=== PATIENT | female | born 1970 | race Caucasian/White ===

== ENCOUNTER 2023-01-22 14:40 | Outpatient (CLI) | payer MEDICAID | END 2023-01-22 14:41 | disposition home or self-care (01) | LOC: CSHMAMMO 14:40 | PROVIDERS: ATTEND Family Medicine | DX: Z12.31 Encounter for screening mammogram for malignant neoplasm of breast (principal) | CPT/HCPCS: 77063; 77067 ==

== ENCOUNTER 2023-04-02 15:34 | Outpatient (CLI) | payer OTHER | END 2023-04-02 15:35 | disposition home or self-care (01) | LOC: CSHMRI 15:34 | PROVIDERS: ATTEND Psychiatry & Neurology Neurology | DX: M48.061 Spinal stenosis, lumbar region without neurogenic claudication (principal); M47.816 Spondylosis without myelopathy or radiculopathy, lumbar region; M53.86 Other specified dorsopathies, lumbar region | CPT/HCPCS: 72148 ==

== ENCOUNTER 2023-04-28 12:28 | Outpatient (CLI) | payer OTHER | END 2023-04-28 12:29 | disposition home or self-care (01) | LOC: CSHMRI 12:28 | PROVIDERS: ATTEND Psychiatry & Neurology Neurology | DX: R93.89 Abnormal findings on diagnostic imaging of other specified body structures (principal) | CPT/HCPCS: 72149 ==

== ENCOUNTER 2024-01-26 15:23 | Outpatient (CLI) | payer OTHER | END 2024-01-26 15:24 | disposition home or self-care (01) | LOC: CSHMAMMO 15:23 | PROVIDERS: ATTEND Family Medicine | DX: Z12.31 Encounter for screening mammogram for malignant neoplasm of breast (principal) | CPT/HCPCS: 77063; 77067 ==